=== PATIENT | male | born 1940 | race Caucasian/White ===

== ENCOUNTER 2019-01-08 15:18 | Emergency (ER) | payer MEDICARE ==
[~2019-01-08] VITALS: Ht 176.5 cm; Wt 84.0 kg
[~2019-01-08 15:18] MED LIST: COU7.5T PO; DILT60TA35 PO; ENOX80SY7 SQ; FERR324T7 PO; FLEC50TA10 PO; FURO40TA4 PO; HYDR-3972 PO; HYDR25SU32 RC; IPRA3AMP31 IH; LEVO100T PO; MONT10TA21 PO; OMEP20TA5 PO; POTA20TA10 PO; SENN-173 PO; TERA5CAP4 PO; TIOT18CA7 IH; [UNRECOGNIZED DRUG - CODE] IV; oxygen at night
[2019-01-08 15:59] LABS: BASOPHILS # (AUTO) 0.1 X10'3 (0-0.2); EOSINOPHILS # (AUTO) 0.5 X10'3 (0-0.9); HEMATOCRIT 40.7 % (42.0-52.0); HEMOGLOBIN 13.6 g/dl (14.0-17.9); LYMPHOCYTES # (AUTO) 1.3 X10'3 (1.1-4.8); LYMPHOCYTES % (AUTO) 21.6 % (21-51); MEAN CORPUSCULAR HEMOGLOBIN 29.1 PG (27.0-31.0); MEAN CORPUSCULAR HGB CONC 33.4 g/dL (33.0-36.5); MEAN CORPUSCULAR VOLUME 87.2 FL (78-98); MEAN PLATELET VOLUME 7.8 FL (7.4-10.4); MONOCYTES # (AUTO) 0.6 X10'3 (0-0.9); MONOCYTES % (AUTO) 10.1 % (2-12); NEUTROPHILS # (AUTO) 3.6 X10'3 (1.8-7.7); NEUTROPHILS % (AUTO) 59.3 % (42-75); PLATELET COUNT 208 X10'3 (140-440); RED BLOOD COUNT 4.67 X10'6 (4.70-6.10); RED CELL DISTRIBUTION WIDTH 15.1 % (11.5-14.5); WHITE BLOOD COUNT 6.2 X10'3 (4.5-11.0)
[2019-01-08 16:16] LABS: ALANINE AMINOTRANSFERASE 28 U/L (12-78); ALBUMIN 3.3 G/DL (3.4-5.0); ALBUMIN/GLOBULIN RATIO 0.9 (1.1-1.5); ALKALINE PHOSPHATASE 129 IU/L (46-116); ANION GAP 8 (8-16); ASPARTATE AMINO TRANSFERASE 24 U/L (10-37); BILIRUBIN,TOTAL 0.5 MG/DL (0.1-1.0); BLOOD UREA NITROGEN 16 MG/DL (7-18); CALCIUM 8.3 MG/DL (8.5-10.1); CHLORIDE 106 MMOL/L (99-107); CREATININE 1.07 MG/DL (0.60-1.10); GLUCOSE 92 MG/DL (70-104); POTASSIUM 3.9 MMOL/L (3.5-5.1); SODIUM 141 MMOL/L (135-145); TOTAL CARBON DIOXIDE 26.6 MMOL/L (24-32); TOTAL PROTEIN 6.8 G/DL (6.4-8.2); eGFR 67 ML/MIN
[2019-01-08 16:23] LABS: MAGNESIUM 1.7 MG/DL (1.5-2.4)
[2019-01-08 17:09] VITALS: BP 127/84
== END 2019-01-08 17:12 | disposition home or self-care (01) ==
LOC: ER 15:19
DX: R00.1 Bradycardia, unspecified (principal); R07.89 Other chest pain; R53.1 Weakness; R53.83 Other fatigue; R42 Dizziness and giddiness; I48.91 Unspecified atrial fibrillation; J44.9 Chronic obstructive pulmonary disease, unspecified; Z95.0 Presence of cardiac pacemaker; Z79.01 Long term (current) use of anticoagulants; Z91.040 Latex allergy status; Z79.899 Other long term (current) drug therapy; Z86.79 Personal history of other diseases of the circulatory system; Z87.19 Personal history of other diseases of the digestive system; Z86.718 Personal history of other venous thrombosis and embolism; Z87.09 Personal history of other diseases of the respiratory system; Z90.49 Acquired absence of other specified parts of digestive tract; Z87.891 Personal history of nicotine dependence
CPT/HCPCS: 36415; 71045; 80053; 83735; 83880; 84484; 85025; 93005; 99284

== ENCOUNTER 2019-04-12 10:12 | Day surgery (SDC) | payer MEDICARE ==
[2019-04-11 11:59] LABS: BASOPHILS # (AUTO) 0.1 X10'3 (0-0.2); BASOPHILS % (AUTO) 0.7 % (0-1); EOSINOPHILS # (AUTO) 0.3 X10'3 (0-0.9); EOSINOPHILS % (AUTO) 3.5 % (0-6); HEMATOCRIT 41.4 % (42.0-52.0); HEMOGLOBIN 13.7 g/dl (14.0-17.9); LYMPHOCYTES # (AUTO) 1.3 X10'3 (1.1-4.8); LYMPHOCYTES % (AUTO) 15.6 % (21-51); MEAN CORPUSCULAR HEMOGLOBIN 29.4 PG (27.0-31.0); MEAN CORPUSCULAR HGB CONC 33.2 g/dL (33.0-36.5); MEAN CORPUSCULAR VOLUME 88.8 FL (78-98); MEAN PLATELET VOLUME 7.8 FL (7.4-10.4); MONOCYTES # (AUTO) 0.8 X10'3 (0-0.9); MONOCYTES % (AUTO) 9.6 % (2-12); NEUTROPHILS # (AUTO) 5.7 X10'3 (1.8-7.7); NEUTROPHILS % (AUTO) 70.6 % (42-75); PLATELET COUNT 209 X10'3 (140-440); RED BLOOD COUNT 4.66 X10'6 (4.70-6.10); RED CELL DISTRIBUTION WIDTH 15.1 % (11.5-14.5); WHITE BLOOD COUNT 8.1 X10'3 (4.5-11.0)
[2019-04-11 12:08] LABS: PARTIAL THROMBOPLASTIN TIME 41 SECONDS (22-32)
[2019-04-11 12:09] LABS: ALBUMIN 3.2 G/DL (3.4-5.0); ANION GAP 9 (8-16); BLOOD UREA NITROGEN 18 MG/DL (7-18); BUN/CREATININE RATIO 14.9 (5.4-32.0); CALCIUM 8.4 MG/DL (8.5-10.1); CHLORIDE 105 MMOL/L (99-107); CREATININE 1.21 MG/DL (0.60-1.10); GLUCOSE 94 MG/DL (70-104); POTASSIUM 3.6 MMOL/L (3.5-5.1); SODIUM 141 MMOL/L (135-145); TOTAL CARBON DIOXIDE 27.3 MMOL/L (24-32); eGFR 58 ML/MIN
[~2019-04-12] VITALS: Ht 175.3 cm; Wt 76.5 kg
[2019-04-12] MEDS ORDERED: normal saline 1000ml 1,000 ML IV ONE (10:55)
[2019-04-12] MEDS ORDERED: Cefazolin 2GM/100ML NS IVPB 100 ML IV ONE (10:55)
== END 2019-04-12 11:15 | disposition home or self-care (01) ==
LOC: SSTAY O 10:12
PROVIDERS: ATTEND Internal Medicine Cardiovascular Disease
DX: Z45.010 Encounter for checking and testing of cardiac pacemaker pulse generator [battery] (principal); I49.5 Sick sinus syndrome; R00.1 Bradycardia, unspecified; I48.20 Chronic atrial fibrillation, unspecified; Z79.01 Long term (current) use of anticoagulants; I49.8 Other specified cardiac arrhythmias; Z53.09 Procedure and treatment not carried out because of other contraindication; Z95.0 Presence of cardiac pacemaker
CPT/HCPCS: 36415; 80048; 85025; 85610; 85730; J7030; J0690

== ENCOUNTER 2019-04-19 09:00 | Day surgery (SDC) | payer MEDICARE ==
[2019-04-18 12:48] LABS: BASOPHILS # (AUTO) 0.1 X10'3 (0-0.2); BASOPHILS % (AUTO) 0.9 % (0-1); EOSINOPHILS # (AUTO) 0.4 X10'3 (0-0.9); EOSINOPHILS % (AUTO) 4.9 % (0-6); HEMATOCRIT 39.7 % (42.0-52.0); HEMOGLOBIN 13.5 g/dl (14.0-17.9); LYMPHOCYTES # (AUTO) 1.2 X10'3 (1.1-4.8); LYMPHOCYTES % (AUTO) 14.8 % (21-51); MEAN CORPUSCULAR HEMOGLOBIN 29.8 PG (27.0-31.0); MEAN CORPUSCULAR VOLUME 87.7 FL (78-98); MEAN PLATELET VOLUME 7.7 FL (7.4-10.4); MONOCYTES # (AUTO) 0.8 X10'3 (0-0.9); MONOCYTES % (AUTO) 10.2 % (2-12); NEUTROPHILS # (AUTO) 5.5 X10'3 (1.8-7.7); NEUTROPHILS % (AUTO) 69.2 % (42-75); PLATELET COUNT 204 X10'3 (140-440); RED BLOOD COUNT 4.52 X10'6 (4.70-6.10); RED CELL DISTRIBUTION WIDTH 14.9 % (11.5-14.5); WHITE BLOOD COUNT 7.9 X10'3 (4.5-11.0)
[2019-04-18 12:51] LABS: ALBUMIN 3.3 G/DL (3.4-5.0); ANION GAP 9 (8-16); BLOOD UREA NITROGEN 20 MG/DL (7-18); BUN/CREATININE RATIO 17.4 (5.4-32.0); CALCIUM 8.4 MG/DL (8.5-10.1); CHLORIDE 104 MMOL/L (99-107); CREATININE 1.15 MG/DL (0.60-1.10); GLUCOSE 113 MG/DL (70-104); POTASSIUM 3.9 MMOL/L (3.5-5.1); SODIUM 138 MMOL/L (135-145); TOTAL CARBON DIOXIDE 25.5 MMOL/L (24-32); eGFR 61 ML/MIN
[2019-04-18 12:56] LABS: PARTIAL THROMBOPLASTIN TIME 30 SECONDS (22-32)
[~2019-04-19] VITALS: Ht 175.3 cm; Wt 76.3 kg
[2019-04-19] VITALS (10 sets, daily range): BP systolic 104–128; BP diastolic 61–91
[2019-04-19] MEDS ORDERED: ceFAZolin 2gm in dextrose, iso 50 ML IV ONE (09:45)
[2019-04-19] MEDS ORDERED: normal saline 1,000 ML IV SCH (09:45)
[2019-04-19] MEDS ORDERED: ceFAZolin 2gm in dextrose, iso 100 ML IV ONE (09:56)
[2019-04-19] MEDS ORDERED: OMEP-297 PO (11:01)
[2019-04-19] MEDS ORDERED: PROP225C9 PO (11:01)
[2019-04-19] MEDS ORDERED: COU7.5T PO (11:01)
[2019-04-19] MEDS ORDERED: ATR0.5NEB NEB (11:01)
[2019-04-19] MEDS ORDERED: WARF-55 PO (11:01)
[2019-04-19] MEDS ORDERED: LEVO112T5 PO (11:01)
[2019-04-19] MEDS ORDERED: ALBU0.63 NEB (11:01)
[2019-04-19] MEDS ORDERED: POTA10TA36 PO (11:01)
[2019-04-19] MEDS ORDERED: DILT120C51 PO (11:01)
[2019-04-19] MEDS ORDERED: [UNRECOGNIZED DRUG - REMARK] (11:01)
[2019-04-19] MEDS ORDERED: UMEC62.5 (11:04)
[2019-04-19] MEDS ORDERED: midazolam 2 mg/2 ml injection ONE ×2 (11:56→13:23)
[2019-04-19] MEDS ORDERED: fentaNYL/PF 50MCG/1 ML 2ML syringe ONE ×2 (11:56→13:24)
[2019-04-19] MEDS ORDERED: ceFAZolin 1000mg inj ONE (11:56)
[2019-04-19] MEDS ORDERED: LIDOcaine 1% W/epiNEPHrine 1:100,000 20ml vial ONE (11:57)
[2019-04-19] MEDS ORDERED: HYDROcodone/acetaminophen 10/325mg tab PO PRN (14:00)
[2019-04-19] MEDS ORDERED: HYDROcodone/acetaminophen 5mg/325mg tablet PO PRN (14:00)
[2019-04-19] MEDS ORDERED: vancomycin/NS 1 GM ADD-VANTAGE 250 ML X 1 DOSE IV ONE (15:00)
[2019-04-19] MEDS ORDERED: ceFAZolin 1GM/D5W- ADD-VANTAGE 50 ML IV SCH (21:00)
== END 2019-04-19 17:24 | disposition home or self-care (01) ==
LOC: SSTAY O 09:00
PROVIDERS: ATTEND Internal Medicine Cardiovascular Disease
DX: Z45.010 Encounter for checking and testing of cardiac pacemaker pulse generator [battery] (principal); I49.5 Sick sinus syndrome; I10 Essential (primary) hypertension; J44.9 Chronic obstructive pulmonary disease, unspecified; K21.9 Gastro-esophageal reflux disease without esophagitis; E03.9 Hypothyroidism, unspecified; N40.0 Benign prostatic hyperplasia without lower urinary tract symptoms; M13.88 Other specified arthritis, other site; I48.91 Unspecified atrial fibrillation; E88.01 Alpha-1-antitrypsin deficiency; Z86.711 Personal history of pulmonary embolism; Z79.01 Long term (current) use of anticoagulants; Z79.899 Other long term (current) drug therapy; Z93.3 Colostomy status; Z72.89 Other problems related to lifestyle; Z87.891 Personal history of nicotine dependence; Z86.11 Personal history of tuberculosis
CPT/HCPCS: 33228; 36415; 80048; 85025; 85610; 85730; 93005; 99152; 99153; C1785; J0690; J2250; J3010; J3370; J7030; A4620

== ENCOUNTER 2020-09-18 20:38 | Emergency (ER) | payer MEDICARE ==
[~2020-09-18] VITALS: Ht 180.3 cm; Wt 70.5 kg
[~2020-09-18 20:38] MED LIST changes: +ALBU0.63 NEB; +ATR0.5NEB NEB; +DILT120C51 PO; -DILT60TA35 PO; -ENOX80SY7 SQ; -FERR324T7 PO; -FLEC50TA10 PO; -HYDR-3972 PO; -HYDR25SU32 RC; -IPRA3AMP31 IH; -LEVO100T PO; +LEVO112T5 PO; -MONT10TA21 PO; +OMEP20CA15 PO; -OMEP20TA5 PO; +POTA10TA36 PO; -POTA20TA10 PO; +PROP225C9 PO; -SENN-173 PO; +UMEC62.5; +WARF-55 PO; +[UNRECOGNIZED DRUG - REMARK]
[2020-09-18] MEDS ORDERED: acetaminophen 325mg tablet PO ONE (21:00)
[2020-09-18 21:01] LABS: BASOPHILS # (AUTO) 0.1 X10'3 (0-0.2); BASOPHILS % (AUTO) 0.6 % (0-1); EOSINOPHILS # (AUTO) 0.2 X10'3 (0-0.9); HEMATOCRIT 40.4 % (42.0-52.0); HEMOGLOBIN 13.3 g/dl (14.0-17.9); LYMPHOCYTES # (AUTO) 1.5 X10'3 (1.1-4.8); MEAN CORPUSCULAR HEMOGLOBIN 29.5 PG (27.0-31.0); MEAN CORPUSCULAR HGB CONC 33.1 g/dL (33.0-36.5); MEAN CORPUSCULAR VOLUME 89.2 FL (78-98); MEAN PLATELET VOLUME 7.7 FL (7.4-10.4); MONOCYTES # (AUTO) 1.2 X10'3 (0-0.9); NEUTROPHILS # (AUTO) 9.2 X10'3 (1.8-7.7); NEUTROPHILS % (AUTO) 75.4 % (42-75); PLATELET COUNT 232 X10'3 (140-440); RED BLOOD COUNT 4.53 X10'6 (4.70-6.10); RED CELL DISTRIBUTION WIDTH 15.2 % (11.5-14.5); WHITE BLOOD COUNT 12.2 X10'3 (4.5-11.0)
[2020-09-18 21:13] LABS: ALANINE AMINOTRANSFERASE 21 U/L (12-78); ALBUMIN 3.3 G/DL (3.4-5.0); ALBUMIN/GLOBULIN RATIO 0.9 (1.1-1.5); ALKALINE PHOSPHATASE 144 IU/L (46-116); ANION GAP 10 (8-16); ASPARTATE AMINO TRANSFERASE 23 U/L (10-37); BILIRUBIN,TOTAL 0.7 MG/DL (0.1-1.0); BLOOD UREA NITROGEN 20 MG/DL (7-18); BUN/CREATININE RATIO 16.4 (5.4-32.0); CALCIUM 8.7 MG/DL (8.5-10.1); CHLORIDE 103 MMOL/L (99-107); CREATININE 1.22 MG/DL (0.60-1.10); GLUCOSE 116 MG/DL (70-104); SODIUM 140 MMOL/L (135-145); TOTAL CARBON DIOXIDE 27.4 MMOL/L (24-32); eGFR 57 ML/MIN
[2020-09-18] MEDS ORDERED: iohexol 350MG/ML 100ml bottle IV ONE (21:44)
[2020-09-18 22:34] LABS: CLARITY,URINE CLEAR (Clear); COLOR,URINE YELLOW (Yellow); GLUCOSE, URINE NEGATIVE (Neg); KETONES,URINE NEGATIVE (Neg); LEUKOCYTE ESTERASE ,URINE NEGATIVE (Neg); NITRITES, URINE NEGATIVE (Neg); OCCULT BLOOD,URINE NEGATIVE (Neg); PH,URINE 5.5 (4.8-8.0); PROTEIN,URINE NEGATIVE (Neg); UROBILINOGEN,URINE 0.2 E.U/dL (0.2-1.0)
[2020-09-18 22:40] LABS: UA COLLECTION TYPE CLN CATCH MIDSTREAM
[2020-09-19 01:35] VITALS: BP 112/52
== END 2020-09-19 01:30 | disposition home or self-care (01) ==
LOC: ER 20:39
DX: R05 Cough (principal); Z20.822 Contact with and (suspected) exposure to COVID-19; R06.02 Shortness of breath; R07.89 Other chest pain; I48.91 Unspecified atrial fibrillation; J44.9 Chronic obstructive pulmonary disease, unspecified; Z86.711 Personal history of pulmonary embolism; Z86.718 Personal history of other venous thrombosis and embolism; Z72.89 Other problems related to lifestyle; Z90.49 Acquired absence of other specified parts of digestive tract; Z95.0 Presence of cardiac pacemaker; Z98.890 Other specified postprocedural states; Z79.01 Long term (current) use of anticoagulants; Z79.899 Other long term (current) drug therapy
CPT/HCPCS: 36415; 71045; 71275; 80053; 81003; 83605; 83880; 84484; 85025; 87040; 87077; 87635; 93005; 99285; C9803; Q9967; 87186

== ENCOUNTER 2020-10-08 11:42 | Inpatient (IN) | payer MEDICARE ==
[~2020-10-08] VITALS: Ht 177.8 cm; Wt 70.5 kg
[2020-10-08 12:34] LABS: BASOPHILS # (AUTO) 0.1 X10'3 (0-0.2); BASOPHILS % (AUTO) 0.4 % (0-1); EOSINOPHILS # (AUTO) 0.1 X10'3 (0-0.9); EOSINOPHILS % (AUTO) 0.3 % (0-6); HEMATOCRIT 37.1 % (42.0-52.0); LYMPHOCYTES # (AUTO) 1.2 X10'3 (1.1-4.8); LYMPHOCYTES % (AUTO) 5.4 % (21-51); MEAN CORPUSCULAR HEMOGLOBIN 28.6 PG (27.0-31.0); MEAN CORPUSCULAR HGB CONC 32.4 g/dL (33.0-36.5); MEAN CORPUSCULAR VOLUME 88.4 FL (78-98); MEAN PLATELET VOLUME 6.9 FL (7.4-10.4); MONOCYTES # (AUTO) 1.2 X10'3 (0-0.9); MONOCYTES % (AUTO) 5.5 % (2-12); NEUTROPHILS # (AUTO) 19.2 X10'3 (1.8-7.7); NEUTROPHILS % (AUTO) 88.4 % (42-75); PLATELET COUNT 489 X10'3 (140-440); RED BLOOD COUNT 4.19 X10'6 (4.70-6.10); RED CELL DISTRIBUTION WIDTH 14.8 % (11.5-14.5); WHITE BLOOD COUNT 21.7 X10'3 (4.5-11.0)
[2020-10-08] MEDS ORDERED: azithromycin/NS 500mg/250ml 250 ML IV ONE (12:40)
[2020-10-08] MEDS ORDERED: CefTRIAXone 2gm/D5W 50ml BAG 50 ML IV ONE (12:40)
[2020-10-08 13:06] LABS: ALANINE AMINOTRANSFERASE 60 U/L (12-78); ALBUMIN 1.9 G/DL (3.4-5.0); ALBUMIN/GLOBULIN RATIO 0.5 (1.1-1.5); ALKALINE PHOSPHATASE 152 IU/L (46-116); ANION GAP 8 (8-16); ASPARTATE AMINO TRANSFERASE 43 U/L (10-37); BILIRUBIN,TOTAL 0.7 MG/DL (0.1-1.0); BLOOD UREA NITROGEN 17 MG/DL (7-18); BUN/CREATININE RATIO 17.5 (5.4-32.0); CHLORIDE 102 MMOL/L (99-107); CREATININE 0.97 MG/DL (0.60-1.10); GLUCOSE 91 MG/DL (70-104); POTASSIUM 3.9 MMOL/L (3.5-5.1); SODIUM 140 MMOL/L (135-145); TOTAL CARBON DIOXIDE 29.7 MMOL/L (24-32); TOTAL PROTEIN 6.1 G/DL (6.4-8.2); eGFR 74 ML/MIN
[2020-10-08] MEDS ORDERED: TERA1CAP4 PO (13:28)
[2020-10-08] MEDS ORDERED: DILT-88 PO (13:28)
[2020-10-08] MEDS ORDERED: FURO40TA4 PO (13:28)
[2020-10-08] MEDS ORDERED: OMEP-50 PO (13:28)
[2020-10-08] MEDS ORDERED: APIX2.5T PO (13:28)
[2020-10-08] MEDS ORDERED: FLUT1BLS4 INH (13:28)
[2020-10-08] MEDS ORDERED: LEVO112T72 PO (13:28)
[2020-10-08] MEDS ORDERED: vancomycin/NS 1 GM ADD-VANTAGE 250 ML IV ONE (13:35)
[2020-10-08] MEDS ORDERED: ondansetron/PF 4mg/2ml inj IV PRN (13:35)
[2020-10-08] MEDS ORDERED: mag hydrox/Alum hydrox/simeth 30ml oral suspension PO PRN (13:35)
[2020-10-08] MEDS ORDERED: magnesium hydroxide 30ml (MOM) UD suspension PO PRN (13:35)
[2020-10-08] MEDS ORDERED: morphine 2 MG/ML inj. syringe IV PRN (13:35)
[2020-10-08] MEDS ORDERED: PRED5TAB49 PO (13:36)
--- NOTE | 2020-10-08 13:40 | NUR ---
VASC AT BEDSIDE
[2020-10-08] MEDS ORDERED: [UNRECOGNIZED DRUG - CODE] INJ (13:45)
--- NOTE | 2020-10-08 13:59 | NUR ---
CONFIRM W/ PA THAT ALL 3 ABX TO BE GIVEN, WILL START VANCO AFTER ZITHROMAX IS DONE
--- NOTE | 2020-10-08 14:26 | NUR ---
JOVITA MCGRATH [phone]
[2020-10-08] MEDS ORDERED: levoFLOXACIN-Levaquin 500mg/D5 100 ML IV ONE (14:30)
[2020-10-08] MEDS: normal saline 1000ml 1,000 ML IV SCH (14:43)
--- NOTE | 2020-10-08 15:20 | NUR ---
PT HAVING SNACK IN ROOM, DR VILLANUEVA PG'ED, REPORTS HE WILL CANCEL LEVAQUIN FOR TODAY AND ORDER THAT FOR TOMORROW.
--- NOTE | 2020-10-08 16:30 | NUR ---
Patient in room ED 9. I have received report from Courtney CASTILLO and had the opportunity to ask questions and assume patient care.
[2020-10-08 17:03] LABS: CLARITY,URINE CLEAR (Clear); COLOR,URINE YELLOW (Yellow); GLUCOSE, URINE NEGATIVE (Neg); KETONES,URINE NEGATIVE (Neg); LEUKOCYTE ESTERASE ,URINE NEGATIVE (Neg); NITRITES, URINE NEGATIVE (Neg); OCCULT BLOOD,URINE NEGATIVE (Neg); PH,URINE 5.5 (4.8-8.0); PROTEIN,URINE NEGATIVE (Neg)
[2020-10-08 17:04] LABS: UA COLLECTION TYPE CLN CATCH MIDSTREAM
[2020-10-08 17:15] VITALS: BP 112/63
--- NOTE | 2020-10-08 17:15 | NUR ---
Patient oriented to room. Call light within reach. Will continue to monitor. Vital sign documented in routine vital signs intervention.
[2020-10-08 18:00] VITALS: BP 129/61
--- NOTE | 2020-10-08 18:24 | NUR ---
Problems reprioritized. Patient report given, questions answered & plan of care reviewed with Rashaun RN. Patient stable at transfer of care.
[2020-10-08] MEDS: apixaban 2.5mg tablet PO SCH (19:30)
[2020-10-08] MEDS: furosemide 40mg tablet PO SCH (19:30)
[2020-10-08] MEDS: Terazosin 1mg capsule PO SCH (19:30)
[2020-10-08] MEDS: acetaminophen 325mg tablet PO PRN (19:31)
[2020-10-08 22:00] VITALS: BP 109/61
[2020-10-08] MEDS ORDERED: albuterol 2.5 MG/3 ML nebule NEB SCH (23:00)
[2020-10-09] MEDS: normal saline 1000ml 1,000 ML IV SCH ×2 (01:07→11:05)
[2020-10-09] MEDS ORDERED: albuterol 2.5 MG/3 ML nebule NEB PRN (01:50)
[2020-10-09 02:00] VITALS: BP 118/64
[2020-10-09] MEDS: vancomycin/NS 1 GM ADD-VANTAGE 250 ML IV SCH ×2 (02:14→14:36)
[2020-10-09] MEDS: acetaminophen 325mg tablet PO PRN ×2 (02:24→17:01)
[2020-10-09 05:54] LABS: BASOPHILS # (AUTO) 0.2 X10'3 (0-0.2); BASOPHILS % (AUTO) 1.4 % (0-1); EOSINOPHILS # (AUTO) 0.1 X10'3 (0-0.9); EOSINOPHILS % (AUTO) 0.6 % (0-6); HEMATOCRIT 35.2 % (42.0-52.0); HEMOGLOBIN 11.4 g/dl (14.0-17.9); LYMPHOCYTES # (AUTO) 0.8 X10'3 (1.1-4.8); LYMPHOCYTES % (AUTO) 4.4 % (21-51); MEAN CORPUSCULAR HEMOGLOBIN 28.8 PG (27.0-31.0); MEAN CORPUSCULAR HGB CONC 32.5 g/dL (33.0-36.5); MEAN CORPUSCULAR VOLUME 88.7 FL (78-98); MEAN PLATELET VOLUME 7.1 FL (7.4-10.4); MONOCYTES # (AUTO) 1.2 X10'3 (0-0.9); MONOCYTES % (AUTO) 6.9 % (2-12); NEUTROPHILS # (AUTO) 15.7 X10'3 (1.8-7.7); NEUTROPHILS % (AUTO) 86.7 % (42-75); PLATELET COUNT 408 X10'3 (140-440); RED BLOOD COUNT 3.97 X10'6 (4.70-6.10); RED CELL DISTRIBUTION WIDTH 14.6 % (11.5-14.5); WHITE BLOOD COUNT 18.1 X10'3 (4.5-11.0)
[2020-10-09 06:00] VITALS: BP 116/64
[2020-10-09 06:04] LABS: ALBUMIN 1.6 G/DL (3.4-5.0); ANION GAP 8 (8-16); BLOOD UREA NITROGEN 17 MG/DL (7-18); BUN/CREATININE RATIO 18.3 (5.4-32.0); CALCIUM 7.8 MG/DL (8.5-10.1); CHLORIDE 105 MMOL/L (99-107); CREATININE 0.93 MG/DL (0.60-1.10); GLUCOSE 105 MG/DL (70-104); POTASSIUM 3.6 MMOL/L (3.5-5.1); SODIUM 142 MMOL/L (135-145); TOTAL CARBON DIOXIDE 28.7 MMOL/L (24-32); eGFR 78 ML/MIN
[2020-10-09] MEDS: non-formulary drug (Fluticasone/Umeclidin/Vilanter (Trelegy Ellipta 100-62.5-25) 1 PUFFS) IH SCH ×2 (06:09→08:00)
--- NOTE | 2020-10-09 06:09 | NUR ---
Problems reprioritized. Patient report given, questions answered & plan of care reviewed with Dot CASTILLO.
--- NOTE | 2020-10-09 06:10 | NUR ---
Patient in room PCU 3028. I have received report from Rashaun CASTILLO and had the opportunity to ask questions and assume patient care.
[2020-10-09] MEDS ORDERED: albuterol 2.5 MG/3 ML nebule NEB SCH (07:00)
[2020-10-09] MEDS ORDERED: enoxaparin 40mg/0.4ml syringe SUBCUT SCH (08:00)
[2020-10-09] MEDS ORDERED: predniSONE 5mg tablet PO SCH (08:00)
[2020-10-09] MEDS: levoTHYROXINE 112mcg tablet PO SCH (08:15)
[2020-10-09] MEDS: apixaban 2.5mg tablet PO SCH (08:15)
[2020-10-09] MEDS: diltiazem CD 120mg capsule (once-daily) PO SCH (08:16)
[2020-10-09] MEDS: furosemide 40mg tablet PO SCH ×2 (08:16→19:11)
[2020-10-09] MEDS: pantoprazole 40mg Tablet.DR PO SCH (08:16)
[2020-10-09] MEDS: Terazosin 1mg capsule PO SCH ×2 (08:16→19:11)
[2020-10-09] MEDS: levoFLOXACIN-Levaquin 500mg/D5 100 ML IV SCH (08:17)
[2020-10-09] MEDS ORDERED: potassium Cl 20 mEq SR tablet PO PRN ×2 (10:10)
[2020-10-09] MEDS ORDERED: magnesium Cl slow-release 64mg tablet PO PRN (10:10)
[2020-10-09] MEDS ORDERED: potassium Cl 40MEQ/1/2NS 520ml 520 ML IV PRN (10:10)
[2020-10-09] MEDS ORDERED: magnesium 4gm in 100ml NS 100 ML IV PRN (10:10)
[2020-10-09 11:00] VITALS: BP 120/60
[2020-10-09] MEDS ORDERED: ipratropium/albuterol 3ml nebule NEB PRN (12:50)
[2020-10-09] MEDS ORDERED: methylPREDNISolone sod succ 125mg/2ml vial IV ONE (12:50)
[2020-10-09] MEDS: ipratropium/albuterol 3ml nebule NEB SCH ×3 (14:11→23:32)
[2020-10-09] MEDS: methylPREDNISolone sod succ 125mg/2ml vial IV SCH ×2 (14:36→19:11)
[2020-10-09 15:00] VITALS: BP 119/84
[2020-10-09 18:00] VITALS: BP 108/60
--- NOTE | 2020-10-09 18:53 | NUR ---
Patient in room PCU 3028. I have received report from Dot CASTILLO and had the opportunity to ask questions and assume patient care.
[2020-10-09] MEDS: apixaban 5mg tablet PO SCH (19:11)
[2020-10-09] MEDS: lactobacillus rhamnosus 10,000 MMU CELLS/CAPSULE PO SCH (19:11)
[2020-10-09] MEDS: K and/or MAG REPLACEMENT MC SCH (19:12)
[2020-10-09 22:00] VITALS: BP 131/61
[2020-10-10 02:00] VITALS: BP 107/61
[2020-10-10] MEDS: normal saline 1000ml 1,000 ML IV SCH (02:18)
[2020-10-10] MEDS: methylPREDNISolone sod succ 125mg/2ml vial IV SCH ×4 (02:19→19:48)
[2020-10-10] MEDS ORDERED: VANCOMYCIN LEVEL IV ONE (02:30)
[2020-10-10] MEDS: ipratropium/albuterol 3ml nebule NEB SCH ×5 (02:47→23:00)
[2020-10-10 02:58] LABS: BASOPHILS % (AUTO) 0.1 % (0-1); EOSINOPHILS % (AUTO) 0 % (0-6); HEMATOCRIT 34.6 % (42.0-52.0); HEMOGLOBIN 11.3 g/dl (14.0-17.9); LYMPHOCYTES # (AUTO) 0.3 X10'3 (1.1-4.8); LYMPHOCYTES % (AUTO) 2.6 % (21-51); MEAN CORPUSCULAR HGB CONC 32.6 g/dL (33.0-36.5); MEAN CORPUSCULAR VOLUME 88.9 FL (78-98); MEAN PLATELET VOLUME 6.8 FL (7.4-10.4); MONOCYTES # (AUTO) 0.2 X10'3 (0-0.9); MONOCYTES % (AUTO) 1.8 % (2-12); NEUTROPHILS # (AUTO) 11.6 X10'3 (1.8-7.7); NEUTROPHILS % (AUTO) 95.5 % (42-75); PLATELET COUNT 384 X10'3 (140-440); RED CELL DISTRIBUTION WIDTH 15.1 % (11.5-14.5); WHITE BLOOD COUNT 12.2 X10'3 (4.5-11.0)
[2020-10-10 03:06] LABS: ALBUMIN 1.7 G/DL (3.4-5.0); ANION GAP 9 (8-16); BLOOD UREA NITROGEN 17 MG/DL (7-18); BUN/CREATININE RATIO 15.5 (5.4-32.0); CALCIUM 7.9 MG/DL (8.5-10.1); CHLORIDE 103 MMOL/L (99-107); GLUCOSE 198 MG/DL (70-104); MAGNESIUM 2.1 MG/DL (1.5-2.4); PHOSPHORUS 4.3 MG/DL (2.3-4.5); POTASSIUM 3.8 MMOL/L (3.5-5.1); SODIUM 139 MMOL/L (135-145); TOTAL CARBON DIOXIDE 26.9 MMOL/L (24-32); VANCOMYCIN,TROUGH 12.3 UG/ML (6.0-14.0); eGFR 64 ML/MIN
[2020-10-10] MEDS: vancomycin/NS 1 GM ADD-VANTAGE 250 ML IV SCH (03:46)
[2020-10-10 06:00] VITALS: BP 123/66
--- NOTE | 2020-10-10 06:09 | NUR ---
Problems reprioritized. Patient report given, questions answered & plan of care reviewed with Juana CASTILLO.
--- NOTE | 2020-10-10 06:10 | NUR ---
Patient in room PCU 3028. I have received report from ANNA Rodney and had the opportunity to ask questions and assume patient care.
[2020-10-10] MEDS: K and/or MAG REPLACEMENT MC SCH ×2 (08:00→19:50)
[2020-10-10] MEDS: non-formulary drug (Fluticasone/Umeclidin/Vilanter (Trelegy Ellipta 100-62.5-25) 1 PUFFS) IH SCH (08:00)
[2020-10-10] MEDS: furosemide 40mg tablet PO SCH ×2 (09:20→19:49)
[2020-10-10] MEDS: levoTHYROXINE 112mcg tablet PO SCH (09:20)
[2020-10-10] MEDS: diltiazem CD 120mg capsule (once-daily) PO SCH (09:20)
[2020-10-10] MEDS: pantoprazole 40mg Tablet.DR PO SCH (09:20)
[2020-10-10] MEDS: Terazosin 1mg capsule PO SCH ×2 (09:21→19:48)
[2020-10-10] MEDS: apixaban 5mg tablet PO SCH ×2 (09:21→19:49)
[2020-10-10] MEDS: lactobacillus rhamnosus 10,000 MMU CELLS/CAPSULE PO SCH ×2 (09:21→19:48)
[2020-10-10] MEDS: levoFLOXACIN-Levaquin 500mg/D5 100 ML IV SCH (09:21)
[2020-10-10 11:00] VITALS: BP 87/54
[2020-10-10] MEDS: VANCOmycin 1250MG/NS 250ml Bag 250 ML IV SCH ×2 (11:10→17:08)
[2020-10-10 15:00] VITALS: BP 115/65
[2020-10-10 18:00] VITALS: BP 124/60
--- NOTE | 2020-10-10 18:37 | NUR ---
Patient in room PCU 3028. I have received report from ANNA Navas and had the opportunity to ask questions and assume patient care.
[2020-10-10 22:00] VITALS: BP 129/59
[2020-10-11] MEDS ORDERED: benzocaine/menthol oral lozeng 1 EACH BOX MM PRN (00:10)
--- NOTE | 2020-10-11 00:15 | NUR ---
Patient complaining of congestion in chest refusing breathing treatments because it is causing sore throat, Called MD Colon for throat lozenges
[2020-10-11] MEDS: VANCOmycin 1250MG/NS 250ml Bag 250 ML IV SCH ×2 (00:41→09:00)
[2020-10-11] MEDS: normal saline 1000ml 1,000 ML IV SCH (00:42)
[2020-10-11] MEDS: methylPREDNISolone sod succ 125mg/2ml vial IV SCH ×3 (01:20→14:00)
[2020-10-11 02:00] VITALS: BP 129/59
[2020-10-11] MEDS: ipratropium/albuterol 3ml nebule NEB SCH ×4 (03:00→14:47)
[2020-10-11 06:00] VITALS: BP 110/66
--- NOTE | 2020-10-11 06:14 | NUR ---
Problems reprioritized. Patient report given, questions answered & plan of care reviewed with ANNA Castillo.
--- NOTE | 2020-10-11 06:16 | NUR ---
Orientee documentation: I have reviewed and agree with all medications administered, interventions, assessments performed and documented by Leonarda CASTILLO .
[2020-10-11] MEDS: levoTHYROXINE 112mcg tablet PO SCH (07:06)
[2020-10-11] MEDS: levoFLOXACIN-Levaquin 500mg/D5 100 ML IV SCH (07:06)
[2020-10-11] MEDS: Terazosin 1mg capsule PO SCH (07:06)
[2020-10-11] MEDS: K and/or MAG REPLACEMENT MC SCH (07:07)
[2020-10-11] MEDS: lactobacillus rhamnosus 10,000 MMU CELLS/CAPSULE PO SCH (07:07)
[2020-10-11] MEDS: apixaban 5mg tablet PO SCH (07:07)
[2020-10-11] MEDS: pantoprazole 40mg Tablet.DR PO SCH (07:07)
[2020-10-11] MEDS: diltiazem CD 120mg capsule (once-daily) PO SCH (07:07)
[2020-10-11] MEDS: furosemide 40mg tablet PO SCH (07:07)
[2020-10-11] MEDS: non-formulary drug (Fluticasone/Umeclidin/Vilanter (Trelegy Ellipta 100-62.5-25) 1 PUFFS) IH SCH (07:08)
[2020-10-11] MEDS ORDERED: VANCOMYCIN LEVEL IV ONE ×2 (08:30→16:30)
[2020-10-11 10:27] LABS: BASOPHILS % (AUTO) 0.1 % (0-1); EOSINOPHILS % (AUTO) 0 % (0-6); HEMATOCRIT 35.7 % (42.0-52.0); HEMOGLOBIN 11.7 g/dl (14.0-17.9); LYMPHOCYTES # (AUTO) 0.3 X10'3 (1.1-4.8); LYMPHOCYTES % (AUTO) 1.6 % (21-51); MEAN CORPUSCULAR HEMOGLOBIN 28.8 PG (27.0-31.0); MEAN CORPUSCULAR HGB CONC 32.7 g/dL (33.0-36.5); MEAN CORPUSCULAR VOLUME 88.2 FL (78-98); MEAN PLATELET VOLUME 6.9 FL (7.4-10.4); MONOCYTES # (AUTO) 0.4 X10'3 (0-0.9); MONOCYTES % (AUTO) 2.9 % (2-12); NEUTROPHILS # (AUTO) 14.9 X10'3 (1.8-7.7); NEUTROPHILS % (AUTO) 95.4 % (42-75); PLATELET COUNT 452 X10'3 (140-440); RED BLOOD COUNT 4.05 X10'6 (4.70-6.10); WHITE BLOOD COUNT 15.6 X10'3 (4.5-11.0)
[2020-10-11 11:00] VITALS: BP 126/63
[2020-10-11 11:11] LABS: ALBUMIN 1.9 G/DL (3.4-5.0); ANION GAP 12 (8-16); BLOOD UREA NITROGEN 24 MG/DL (7-18); BUN/CREATININE RATIO 18.8 (5.4-32.0); CALCIUM 8.2 MG/DL (8.5-10.1); CHLORIDE 103 MMOL/L (99-107); CREATININE 1.28 MG/DL (0.60-1.10); GLUCOSE 159 MG/DL (70-104); POTASSIUM 3.3 MMOL/L (3.5-5.1); SODIUM 142 MMOL/L (135-145); eGFR 54 ML/MIN
[2020-10-11 11:14] LABS: VANCOMYCIN,TROUGH 33.2 UG/ML (6.0-14.0)
--- NOTE | 2020-10-11 12:45 | NUR ---
Dr. Roper Paged "RE:Derek Dennis: [id number]. Pt is wanting to leave now AMA. pt does not want to wait for PT eval and tx. Please advise - Anna #[phone]" Dr. Roper immediately called back and stated "if he wants to leave, he is a free man, let him sign AMA paperwork."
[2020-10-11] MEDS ORDERED: LACT1CAP26 PO (13:46)
[2020-10-11] MEDS ORDERED: ALBU8.5H8 INH (13:46)
[2020-10-11] MEDS ORDERED: APIX5TAB3 PO (13:46)
[2020-10-11] MEDS ORDERED: CEFD300C3 PO (13:46)
[2020-10-11] MEDS ORDERED: PRED10TA23 PO (13:46)
--- NOTE | 2020-10-11 14:51 | NUR ---
SPOKE WITH DR. RICARDO REGARDING PT AMBULATION WITH PT. DR. RICARDO OKAYED DC FOR PT. PT DISCHARGE INSTRUCTIONS DONE WITH ALL QUESTIONS ANSWERED. IV AND TELE DISCONTINUED. NO S/S OF COMPLICATIONS. ALL PT BELONGINGS WITH PT. PT TAKEN DOWN TO LOBBY BY WHEELCHAIR TO GO HOME BY YELLOW CAB.
--- NOTE | 2020-10-14 14:38 | NUR ---
CASE MANAGEMENT DISCHARGE FOLLOW UP: T/c to pt, no answer, left message requesting callback. Addendum: 10/14/20 at 1454 by Tatyana Lamb RN [id number] Received return phone call from pt's , she reports that pt is experiencing some confusion ever since he was discharged (states he accused her of trying to kill him when she gave him his medications), still coughing up a lot of junk, wearing 2L via NC with O2 sat 94%, SOB improving. Verbalizes understanding of medications, she states that she is helping pt with his medications, but would like someone to come out and help her with pt, home health was ordered for pt, she states that she has not heard from anyone, will follow up. Upon inquiry, she states pt did not come home with IS or flutter valve however pt did leave a bag in the cab. Verbalizes understanding of the importance in making/keeping follow-up appointments, has appt with PCP tomorrow and then f/u appt with production support consultant on October . States no further questions/concerns at this time. 1448 Messaged Kadi with [facility]. Addendum: 10/14/20 at 1554 by Tatyana Lamb RN [id number] Received return from DARIEL Wallis set for pt.
== END 2020-10-11 14:48 | disposition home health service (06) | DRG 190 ==
LOC: ER 11:43 → ED HOLD 13:33 → PCU 3S 17:15
PROVIDERS: ADMIT Family Medicine; ATTEND Family Medicine
DX: J44.1 Chronic obstructive pulmonary disease with (acute) exacerbation (principal); J18.9 Pneumonia, unspecified organism; I50.30 Unspecified diastolic (congestive) heart failure; J44.0 Chronic obstructive pulmonary disease with (acute) lower respiratory infection; I48.91 Unspecified atrial fibrillation; I49.3 Ventricular premature depolarization; N18.9 Chronic kidney disease, unspecified; Z20.822 Contact with and (suspected) exposure to COVID-19; Z79.01 Long term (current) use of anticoagulants; Z79.899 Other long term (current) drug therapy; Z83.3 Family history of diabetes mellitus; Z86.711 Personal history of pulmonary embolism; Z86.718 Personal history of other venous thrombosis and embolism; Z87.891 Personal history of nicotine dependence; Z99.81 Dependence on supplemental oxygen; Z90.49 Acquired absence of other specified parts of digestive tract; Z95.0 Presence of cardiac pacemaker
CPT/HCPCS: 36415; 71046; 80048; 80053; 80202; 81003; 83605; 83735; 83880; 84100; 84145; 84443; 85025; 87040; 87070; 87081; 87635; 93005; 93308; 93971; 94640; 94760; 96365; 97161; 97530; 99285; C9803; G0378; J0456; J0696; J1956; J2930; J3370; J7030; J7512